=== PATIENT | male | born 1935 | race Caucasian/White ===

== ENCOUNTER → 2021-06-05 | Outpatient (CLI) | payer OTHER, BC ==
[~2021-06-05] MED LIST: CARVEDILOL12.5 MG PO; LIPITOR20 MG PO; LISINOPRIL20 MG PO; XARELTO20 MG PO
== END ==
LOC: LAB 08:57
PROVIDERS: ATTEND Student in an Organized Health Care Education/Training Program
DX: Z01.812 Encounter for preprocedural laboratory examination (principal); Z20.822 Contact with and (suspected) exposure to COVID-19

== ENCOUNTER → 2021-06-08 | Outpatient (CLI) | payer OTHER, BC ==
[~2021-06-08] VITALS: Ht 185.4 cm; Wt 106.6 kg
--- NOTE | 2021-06-10 11:08 | PATH ---
[facility] [address] [place] [address] PATHOLOGY RPT PROCEDURE Name: GERMAN GREEN Room #: REG [facility] Trent.#: [id number] Admission: 06/08/21 Date of : 39 Discharge: Report #: [id number] Path Case #: [id number] [facility] Accession Number: [id number] . 01 Material submitted: . PART A: colon - TRANSVERSE POLYP BIOPSY. Modifiers: transverse PART B: rectum - RECTAL BIOPSY . 01 Clinical history: . COLONOSCOPY HX RECTAL CANCER AND RADIATION THERAPY . 02 Diagnosis: A. Transverse colon polyp, polypectomy: - Tubular adenoma. - Negative for high grade dysplasia or malignancy. . B. Rectum, biopsy: - Colonic mucosa with focal ischemic changes, chronic non-specific inflammation and focal gland architectural distortion. - Negative for atypia or malignancy. (ERICKA/db; 06/09/2021) LBQ 06/09/2021 1402 Local . 02 Electronically signed: . Dasha Whipple MD, Pathologist NPI- [id number] . 01 Gross description: . A. The specimen is received in formalin, labeled "[place], transverse polyp BX". Received is a single segment of pale [place] tissue measuring 0.3 cm in maximum dimensions. The specimen is submitted entirely in cassette A1. . B. The specimen is submitted in formalin, labeled "[place], rectal polyp". Received are 4 segments of pale [place] tissue ranging in size from 0.2 to 0.4 cm in maximum dimensions. The specimen is submitted entirely in cassette B1. ([facility]; 06/08/2021) NRI/NRI 06/08/20212051 Local . 02 Pathologist provided ICD-10: D12.3, K62.89 . 02 CPT . 102786, 360041 Specimen Comment: A courtesy copy of this report has been sent to [phone], [place] [id number] PATHOLOGY RPT PROCEDURE Name: GERMAN GREEN Room #: REG [facility]#: [id number] Admission: 06/08/21 Date of : 39 Discharge: Report #: [id number] Path Case #: [id number] Specimen Comment: [id number] Specimen Comment: Report sent to / DR TURNER Specimen Comment: A duplicate report has been generated due to demographic updates. Performed at: [address] [facility] [address], [place], [place] [id number] MD Laurent Stacy MD Phone: [phone] Performed at: [address] [facility] [id number] MD Sivan Najera MD Phone: [phone]
== END | disposition home or self-care (01) ==
LOC: GI 08:31
PROVIDERS: ATTEND Internal Medicine Gastroenterology
DX: Z12.11 Encounter for screening for malignant neoplasm of colon (principal); Z85.038 Personal history of other malignant neoplasm of large intestine; D12.3 Benign neoplasm of transverse colon; K62.89 Other specified diseases of anus and rectum; I10 Essential (primary) hypertension; I48.91 Unspecified atrial fibrillation; E78.5 Hyperlipidemia, unspecified; Z98.890 Other specified postprocedural states; Z79.899 Other long term (current) drug therapy; Z79.01 Long term (current) use of anticoagulants; Z88.8 Allergy status to other drugs, medicaments and biological substances; Z98.41 Cataract extraction status, right eye
CPT/HCPCS: 62110; 62900